=== PATIENT | male | born 1960 | race Caucasian/White ===

== ENCOUNTER → 2018-05-22 11:41 | Outpatient (CLI) | payer BC, SELFPAY ==
[2018-05-22 12:56] LABS: PSA,Total - Annual Screen 1.82 ng/mL (0.00-4.00)
== END ==
PROVIDERS: Family Provider Family Medicine; PCP Family Medicine; Visit Provider Nurse Practitioner Adult Health
DX: Z12.5 Encounter for screening for malignant neoplasm of prostate (principal)
CPT/HCPCS: 36415; 84153; G0103

== ENCOUNTER → 2019-01-28 11:17 | Outpatient (CLI) | payer BC, SELFPAY ==
[2019-01-28 14:00] LABS: Absolute Lymphocyte Count 1.54 X10^3/ul (0.83-4.51); Absolute Neutrophil Count 2.8 X10^3/uL (2.0-7.7); Basophil# 0.03 X10^3/uL; Basophil% 0.6 % (0-1); Eosinophil# 0.16 X10^3/uL; Eosinophils% 3.2 % (0-5); Hematocrit 41.7 % (40-54); Hemoglobin 14.4 g/dl (13.0-16.5); Lymphocyte # 1.54 X10^3/ul (4.0); Lymphocyte % 30.8 % (19-41); Mean Corp Hgb Conc 34.5 g/gl (32-36); Mean Corpuscular Hgb 30.6 pg (27.0-32.0); Mean Corpuscular Volume 88.5 fL (80-94); Monocyte# 0.49 X10^3/uL; Monocyte% 9.8 % (0-10); Neutrophil # 2.75 X10^3/uL (2.7-7.7); Platelet Count 173 K/mm3 (150-450); RBC Distribution Width CV 13.6 % (11.6-14.6); RBC Distribution Width SD 43.4 fl (35.1-43.9); Red Blood Count 4.71 M/mm3 (4.6-6.2)
[2019-01-28 14:16] LABS: POSITIVE COUNT NO; POSITIVE DIFFERENTIAL NO; POSITIVE MORPHOLOGY NO
[2019-01-28 14:33] LABS: ALB/GLOB Ratio 1.1 RATIO (0.9-2.4); AST(SGOT) 22 U/L (15-37); Alanine Aminotransfer ALT/SGPT 39 U/L (16-61); Albumin, Serum 4.1 g/dL (3.2-5.0); Alkaline Phosphatase 57 U/L (45-117); Anion Gap 10 (5-15); BUN 15 mg/dL (7-18); BUN/Creat Ratio 16.4 RATIO (10-20); Calcium,Total 9.6 mg/dL (8.5-10.1); Chloride 106 mmol/L (98-107); Creatinine, Serum 0.92 mg/dL (0.70-1.30); EST Glomerular Filtration Rate 90 mL/min (>60); Est Glom Filt Rate - Afr Amer 109 mL/min (>60); Globulin 3.9 g/dL (2.2-4.2); Glucose 190 mg/dL (74-106); Potassium 4.4 mmol/L (3.5-5.1); Sodium Level 140 mmol/L (136-145); T4 Free Direct 0.85 ng/dL (0.76-1.46); Thyroid Stim Hormone (TSH) 1.59 uIU/mL (0.358-3.74)
[2019-01-28 14:41] LABS: Microalbumin:Creatinine Ratio 15.5 mg/g CRE (<30 mg/g CRE)
== END ==
PROVIDERS: Family Provider Family Medicine; PCP Family Medicine; Visit Provider Family Medicine
DX: E11.9 Type 2 diabetes mellitus without complications (principal); I10 Essential (primary) hypertension; E78.5 Hyperlipidemia, unspecified
CPT/HCPCS: 36415; 80053; 82043; 82570; 84439; 84443; 85025

== ENCOUNTER → 2020-02-04 | Outpatient (CLI) | payer BC, SELFPAY ==
[2020-02-04 15:41] LABS: Anion Gap 7 (5-15); BUN 20 mg/dL (7-18); BUN/Creat Ratio 23.3 RATIO (10-20); Calcium,Total 9.2 mg/dL (8.5-10.1); Chloride 104 mmol/L (98-107); Creatinine, Serum 0.86 mg/dL (0.70-1.30); EST Glomerular Filtration Rate 96 mL/min (>60); Est Glom Filt Rate - Afr Amer 116 mL/min (>60); Glucose 224 mg/dL (74-106); PSA,Total - Annual Screen 2.18 ng/mL (0.00-4.00); Potassium 4.2 mmol/L (3.5-5.1); Sodium Level 137 mmol/L (136-145)
== END | disposition home or self-care (01) ==
LOC: LAB 14:01
PROVIDERS: PCP Family Medicine; Referring Provider Nurse Practitioner Adult Health; Visit Provider Nurse Practitioner Adult Health
DX: R33.8 Other retention of urine (principal); Z12.5 Encounter for screening for malignant neoplasm of prostate
CPT/HCPCS: 36415; 80048; 84153; G0103

== ENCOUNTER 2020-03-20 05:14 | Day surgery (SDC) | payer BC, SELFPAY ==
--- NOTE | 2020-03-19 12:15 | EKG12_ITS ---
Test Reason : PRE-OP Blood Pressure : / mmHG Vent. Rate : 083 BPM Atrial Rate : 083 BPM P-R Int : 138 ms QRS Dur : 078 ms QT Int : 374 ms P-R-T Axes : 024 -05 034 degrees QTc Int : 439 ms Normal sinus rhythm Nonspecific T wave abnormality Abnormal ECG Confirmed by REBECCA WRIGHT, SARAHI ([id number]), proposal editor JOE SABA ([id number]) on 03/23/2020 9:53:11 AM Referred By: Efren Ruiz Confirmed By:WILBERT FERNANDEZ MD
[2020-03-19 12:42] LABS: Hematocrit 40.1 % (40-54); Hemoglobin 13.7 g/dL (13.0-16.5); Mean Corp Hgb Conc 34.2 g/dL (32-36); Mean Corpuscular Hgb 30.9 pg (27.0-32.0); Mean Corpuscular Volume 90.5 fL (80-94); Mean Platelet Vol. 9.6 fl (6.2-12.0); Platelet Count 150 K/mm3 (150-450); RBC Distribution Width SD 43.1 fl (35.1-43.9); Red Blood Count 4.43 M/mm3 (4.6-6.2); White Blood Count 4.8 K/mm3 (4.4-11.0)
[2020-03-19 13:13] LABS: Anion Gap 9 (5-15); BUN 18 mg/dL (7-18); BUN/Creat Ratio 19.5 RATIO (10-20); Calcium,Total 9.2 mg/dL (8.5-10.1); Chloride 103 mmol/L (98-107); Creatinine, Serum 0.92 mg/dL (0.70-1.30); EST Glomerular Filtration Rate 89 mL/min (>60); Est Glom Filt Rate - Afr Amer 107 mL/min (>60); Glucose 224 mg/dL (74-106); Potassium 4.1 mmol/L (3.5-5.1); Sodium Level 139 mmol/L (136-145)
[2020-03-19 13:24] LABS: Hemoglobin A1c 9.6 % (3.8-5.6)
[2020-03-20] VITALS (11 sets, daily range): BP systolic 134–152; BP diastolic 83–95; PULSE 68–88; RESP 16; TEMP 36.1–36.9; O2SAT 92–98; BMI 40.9
[2020-03-20] MEDS: Lactated Ringers 1,000 ML 100 ML IV ×2 (06:06→09:40)
[2020-03-20 06:25] LABS: Bedside Glucose 283 mg/dL (70-110)
--- NOTE | 2020-03-20 07:27 | PCM.HP.STD ---
Problem List (1) BPH loc w urin obs/LUTS Status: Acute History of Present Illness Date of Admission: 03/20/20 Chief Complaint: BPH with outlet obstruction The patient is a 60 year old male with a history of obstructive urinary symptoms on cystoscopy was found to have a large median lobe causing obstruction because of this I recommended we proceed with a transurethral resection of the median lobe and transurethral section of the prostate. We talked about the procedure how it is done explained the patient how the procedure is done all his questions were addressed we talked about the risk of the procedure. He signed the consent form Past Medical History Allergies No Known Allergies Allergy (Verified 03/17/20 14:26) Home Medications: Ambulatory Orders Medication Instructions Recorded Glimepiride [Amaryl] 2 mg PO BID 02/26/14 Lisinopril [Zestril] 10 mg PO DAILY 02/26/14 Simvastatin [Zocor] 40 mg PO QHS 02/26/14 metFORMIN HCl [Glucophage] 1,000 mg PO BIDCM 02/26/14 Tadalafil [Cialis] 5 mg PO DAILY 03/17/20 Surgical History: no surgical history Smoking Status: Never smoker Tobacco Use: Non-smoker Review of Systems Constitutional: Denies: Chills, Fever, Weight Change HEENT: Denies: Head Aches, Sinus Congestion, Sinus Drainage Cardiovascular: Denies: Chest Pain, Palpitations Respiratory: Denies: Cough, Shortness of breath at rest, Sputum production Gastrointestinal: Denies: Abdominal Pain, Nausea, Vomiting Genitourinary: Denies: Dysuria Musculoskeletal: Denies: Joint Pain, Joint Tenderness Skin: Denies: Rash, Wounds Neurological: Denies: Numbness, Tingling, Focal weakness Psychiatric: Denies: Anxiety, Depression, Homicidal Ideations, Suicidal Ideations Hematologic/ Lymphatic: Denies: Easy Bruising, Easy Bleeding VTE Information - Inpt Only VTE Present on Admission: No VTE Mechan Device Prophylaxis: SCD's Patient Problems: Active and Suspected Problems BPH loc w urin obs/LUTS (Acute) - Physical Exam Vitals/I&O's: Vital Signs Temp Pulse Resp BP Pulse Ox 97.4 F L 77 16 148/85 H 95 03/20/20 05:47 03/20/20 05:47 03/20/20 05:47 03/20/20 05:47 03/20/20 05:47 Oxygen Delivery Method Room Air Weight: 129.4 kg Body Mass Index (BMI) 40.9 Finger Stick Blood Glucose 93 General: Alert, Oriented x3, Cooperative HEENT: Atraumatic, PERRLA, EOMI, Normocephalic Neck: Supple, No JVD, Negative Carotid Bruits Lungs: Clear to auscultation, Normal air movement Cardiovascular: Regular rate, No murmurs Abdomen: Bowel Sounds Present, Soft, Non Tender Extremities: No edema, Capillary Refill Less than 3 Seconds Skin: No rashes, No breakdown Musculoskeletal: No Tenderness to Palpation of Joints or Extremities Neurological: Cranial nerves II-XII grossly intact Psych/Mental Status: Normal Affect, Appropriate Laboratory Results 03/19/20 12:11: COVID-19 ([facility]) Not Detected 03/19/20 12:22: Sodium 139, Potassium 4.1, Chloride 103, Carbon Dioxide 27.0, Anion Gap 9, BUN 18, Creatinine 0.92, Est GFR (MDRD) Af Amer 107, Est GFR (MDRD) Non-Af 89, BUN/Creatinine Ratio 19.5, Glucose 224 H, Calcium 9.2 03/19/20 12:23: WBC 4.8, RBC 4.43 L, Hgb 13.7, Hct 40.1, MCV 90.5, MCH 30.9, MCHC 34.2, RDW Std Deviation 43.1, RDW Coeff of Phi 13.0, Plt Count 150, MPV 9.6 03/19/20 12:23: Hemoglobin A1c 9.6 H 03/20/20 05:56: POC Glucose 283 H Current Medications Cefazolin Sodium 3 gm/ Sodium (Chloride) 115 mls @ 150 mls/hr IV PREOP ONE Stop: 03/20/20 08:15 Lactated Ringer's () 1,000 mls @ 100 mls/hr IV .Q10H SHARON Last Admin: 03/20/20 06:06 Dose: 100 mls/hr Documented by: Assessment/Plan All Active Problems BPH loc w urin obs/LUTS (Acute) Plan to proceed with transurethral resection of the prostate.
--- NOTE | 2020-03-20 07:29 | DCINST_ITS ---
Discharge Diet: Light diet - advance as tolerated Discharge Activity: Return to Normal Activity Call your doctor if your incision/area has: Sudden Increased Bleeding Instructions: Transurethral Resection of the Prostate (TURP): Home Recovery Allergies/Adverse Reactions: Allergies No Known Allergies Allergy (Verified 03/17/20 14:26) Medications to take at Discharge Glimepiride [Amaryl] 2 mg PO BID 02/26/14 Lisinopril [Zestril] 10 mg PO DAILY 02/26/14 Simvastatin [Zocor] 40 mg PO QHS 02/26/14 metFORMIN HCl [Glucophage] 1,000 mg PO BIDCM 02/26/14 Tadalafil [Cialis] 5 mg PO DAILY 03/17/20 Primary Care Physician: Felix Cardona MD [Primary Care Provider] - Test Results: Test results from this visit will be discussed in further detail at your follow- up appointment, if applicable. Please Follow Up With: Efren Ruiz MD When: in 2 weeks, please call to make an appointment.
--- NOTE | 2020-03-20 07:30 | PROS_PTH ---
PATIENT: LUIZ MONAE LOC: [facility] [place]#:[id number] AGE/SX: 60/M ROOM: RE03/20/[address]: Dr. Efren Ruiz MD : 1960 BED: DIS: 03/21/2020 SPEC #: [id number] RECD: 03/20/20 10:10 STATUS: NADYA HAMZAH #: [id number] JOEY: 03/20/20 07:[address]: Efren Ruiz DEPT: SURGICAL PATHOLOGY RECD BY: Rajeev Felipe ENTERED: 03/20/20 13:03 SP TYPE: TURP OTHR DR: Dr. Felix Cardona MD Tissues: Prostate, NOS Procedures: Surgery Specimen Level IV HEADER OPERATION: Cystoscopy, TUR prostate, Olympus PRE-OP DIAGNOSIS: BPH with lower urinary tract symptoms TISSUE SUBMITTED: Prostate tissue MICROSCOPIC DIAGNOSIS Prostate, transurethral resection: Benign nodular hyperplasia, glandular and stromal types. Mild chronic inflammation and focal acute inflammation. AM:adelso 03/23/20 MICROSCOPIC DESCRIPTION Slides are reviewed. GROSS DESCRIPTION Received is one container labeled with the patient's name and designated prostate tissue. The specimen consists of multiple irregular fragments of pink-andrews, rubbery, soft tissue that in aggregate weigh 12.4 gm and measure in aggregate 6 x 6 x 0.8 cm. The entire specimen is submitted in ten cassettes. / AM:adelso 03/20/20 TC:3 CPT: 86841
[2020-03-20] MEDS: Lubricating Jelly 60 GM Tube 30 GM TOPICAL (07:40)
--- NOTE | 2020-03-20 08:30 | OP.PCM_ITS ---
Problem List (1) BPH loc w urin obs/LUTS Status: Acute Report of Operation Date of Procedure: 03/20/20 Pre-Operative Diagnosis: BPH with obstruction Post-Operative Diagnosis: Same Surgery/Procedure Performed:: Transurethral resection of the prostate Description of Surgical Findings:: 60-year-old male with significant obstruction of the prostate presents for transurethral resection, Patient was taken back to the operating room at the smooth induction of general anesthesia he was placed in dorsolithotomy position the penis and testicles were prepped and draped in usual sterile fashion, I first dilated the meatus and then I went in with a 24 Tristanian noncontinuous flow resectoscope. On inspection of the prostate he had significant bilateral hypertrophy but also had a significant median lobe causing blockage in ball-valve blockage, identified the right and left ureteral orifice I then resected the median lobe I then resected the right lobe of the prostate I then resect the left low the prostate. And then resect the apical tissue. All the chips were Ellik out of the bladder, I did a flow test had a wide open flow. Resection time took about 45 minutes, obtain hemostasis and then put a catheter in for continuous irrigation. Patient anesthetic was being reversed. Type of Anesthesia:: General Drains: 22fr 3 way - Admit VTE Documentation VTE Present on Admission: No VTE Mechan Device Prophylaxis: SCD's
[2020-03-20 09:15] LABS: Bedside Glucose 266 mg/dL (70-110)
[2020-03-20] MEDS: Ondansetron 4 MG/2 ML Vial IV (10:29)
[2020-03-20] MEDS: 0.9% Normal Saline 1,000 ML 75 ML IV ×2 (10:45→23:48)
--- NOTE | 2020-03-20 11:01 | CPS ---
[facility] setup patient's home CPAP at bedside. Water chamber filled and mask put on with comfort. Patient understands to have RN call [facility] if any problems occur with machine.
[2020-03-20] MEDS: Docusate Sodium 100 MG Capsule PO ×2 (14:45→21:29)
[2020-03-20] MEDS: Pantoprazole Sodium 40 MG Tablet PO (14:46)
[2020-03-20] MEDS: Glimepiride 2 MG Tablet PO (17:46)
[2020-03-20] MEDS: Ibuprofen 600 MG Tablet PO (17:59)
[2020-03-20] MEDS: Atorvastatin Calcium 20 MG Tablet PO (21:29)
[2020-03-20] MEDS: Lisinopril 10 MG Tablet PO (21:30)
[2020-03-21 02:36] VITALS: BP 127/83; PULSE 70; RESP 16; TEMP 36.8; O2SAT 98
[2020-03-21] MEDS: Ibuprofen 600 MG Tablet PO (02:47)
[2020-03-21 07:50] VITALS: BP 116/79; PULSE 71; RESP 16; TEMP 36.5; O2SAT 96
[2020-03-21] MEDS: Pantoprazole Sodium 40 MG Tablet PO (09:20)
[2020-03-21] MEDS: Glimepiride 2 MG Tablet PO (09:20)
[2020-03-21] MEDS: Docusate Sodium 100 MG Capsule PO (09:20)
== END 2020-03-21 12:51 | disposition home or self-care (01) ==
LOC: SDC 05:15 → AC 05:15 → MS3 08:22
PROVIDERS: Anesthesiology; PCP Family Medicine; Referring Provider Urology; Visit Provider Urology
PROC: (CPT 52601; principal; 2020-03-20 07:20)
DX: N40.1 Benign prostatic hyperplasia with lower urinary tract symptoms (principal); N13.8 Other obstructive and reflux uropathy; E11.9 Type 2 diabetes mellitus without complications; E78.00 Pure hypercholesterolemia, unspecified; G47.30 Sleep apnea, unspecified; Z87.442 Personal history of urinary calculi; Z79.84 Long term (current) use of oral hypoglycemic drugs; Z79.899 Other long term (current) drug therapy; Z11.59 Encounter for screening for other viral diseases
CPT/HCPCS: 52601; 36415; 80048; 82962; 83036; 85027; 87635; 88305; 93005; G2023; J7030; J7120; J2405; U0003

== ENCOUNTER → 2020-06-02 | Outpatient (CLI) | payer BC, SELFPAY ==
[2020-03-20 10:33] VITALS: BMI 40.9
== END | disposition home or self-care (01) ==
PROVIDERS: PCP Family Medicine; Referring Provider Urology; Visit Provider Urology
DX: N39.0 Urinary tract infection, site not specified (principal)
CPT/HCPCS: 87086; 87088

== ENCOUNTER 2020-07-01 08:07 | Outpatient (RCR) | payer BC, SELFPAY ==
[2020-03-20 10:33] VITALS: BMI 40.9
== END 2020-07-01 23:59 ==
LOC: EMPH 08:07
PROVIDERS: PCP Family Medicine; Visit Provider Family Medicine Geriatric Medicine
DX: Z11.59 Encounter for screening for other viral diseases (principal)
CPT/HCPCS: 87635; U0003

== ENCOUNTER 2020-07-31 06:40 | Outpatient (RCR) | payer BC, SELFPAY ==
[2020-03-20 10:33] VITALS: BMI 40.9
== END 2020-08-01 23:59 ==
LOC: EMPH 06:40
PROVIDERS: PCP Family Medicine; Visit Provider Family Medicine Geriatric Medicine
DX: Z03.818 Encounter for observation for suspected exposure to other biological agents ruled out (principal)
CPT/HCPCS: 87426

== ENCOUNTER 2020-07-31 06:40 | Outpatient (RCR) | payer BC, SELFPAY ==
[2020-03-20 10:33] VITALS: BMI 40.9
== END 2020-08-03 23:59 ==
LOC: EMPH 06:40
PROVIDERS: PCP Family Medicine; Referring Provider Family Medicine Geriatric Medicine; Visit Provider Family Medicine Geriatric Medicine
DX: Z03.818 Encounter for observation for suspected exposure to other biological agents ruled out (principal)

== ENCOUNTER 2020-08-11 09:36 | Outpatient (RCR) | payer BC, SELFPAY ==
[2020-03-20 10:33] VITALS: BMI 40.9
== END 2020-08-31 23:59 ==
LOC: EMPH 09:36
PROVIDERS: PCP Family Medicine; Referring Provider Family Medicine Geriatric Medicine; Visit Provider Family Medicine Geriatric Medicine
DX: Z03.818 Encounter for observation for suspected exposure to other biological agents ruled out (principal)
CPT/HCPCS: 87426

== ENCOUNTER 2020-09-28 08:27 | Outpatient (RCR) | payer BC, SELFPAY ==
[2020-03-20 10:33] VITALS: BMI 40.9
== END 2020-10-01 23:59 ==
LOC: EMPH 08:27
PROVIDERS: PCP Family Medicine; Referring Provider Family Medicine Geriatric Medicine; Visit Provider Family Medicine Geriatric Medicine
DX: Z03.818 Encounter for observation for suspected exposure to other biological agents ruled out (principal)
CPT/HCPCS: 87426

== ENCOUNTER 2020-10-21 08:01 | Outpatient (RCR) | payer BC, SELFPAY ==
[2020-03-20 10:33] VITALS: BMI 40.9
== END 2020-11-01 23:59 ==
LOC: EMPH 08:01
PROVIDERS: PCP Family Medicine; Referring Provider Family Medicine Geriatric Medicine; Visit Provider Family Medicine Geriatric Medicine
DX: Z03.818 Encounter for observation for suspected exposure to other biological agents ruled out (principal)
CPT/HCPCS: 87426

== ENCOUNTER → 2020-11-11 13:20 | Outpatient (CLI) | payer BC, SELFPAY ==
[2020-03-20 10:33] VITALS: BMI 40.9
== END ==
PROVIDERS: PCP Family Medicine; Visit Provider Family Medicine
DX: Z46.89 Encounter for fitting and adjustment of other specified devices (principal)

== ENCOUNTER 2021-03-27 09:05 | Emergency (ER) | payer BC, SELFPAY ==
[2020-03-20 10:33] VITALS: BMI 40.9
[2021-03-27 09:07] VITALS: BP 154/93; PULSE 108; RESP 16; TEMP 36.7; O2SAT 96; BMI 40.1
--- NOTE | 2021-03-27 09:24 | EKG12_ITS ---
Test Reason : ABCESS Blood Pressure : / mmHG Vent. Rate : 104 BPM Atrial Rate : 104 BPM P-R Int : 138 ms QRS Dur : 076 ms QT Int : 328 ms P-R-T Axes : 023 -02 071 degrees QTc Int : 431 ms Sinus tachycardia with Premature supraventricular complexes Nonspecific T wave abnormality Abnormal ECG Confirmed by OTIS WRIGHT, BOOM ([id number]), fan mail editor JOE SABA ([id number]) on 03/30/2021 8:48:16 AM Referred By: CL Confirmed By:BOOM BERG MD
--- NOTE | 2021-03-27 09:24 | CT_ITS ---
STUDY: CT SOFT TISSUE NECK WITH CONTRAST REASON FOR EXAM: Male, 61 years old. Left posterior neck cyst for few weeks, now draining, possible abscess. RADIATION DOSAGE (If Supplied By Facility): CTDIvol = ( 19.96 ) mGy, DLP = ( 748.05 ) mGycm TECHNIQUE: The patient was scanned in a multi-detector CT scanner. High resolution transaxial imaging was performed following intravenous administration of IV 100mL Isovue-300. Sagittal and coronal images were reconstructed. Individualized dose optimization techniques were used for this CT. COMPARISON: None. FINDINGS: Edema and swelling of the inferior occipital region and upper neck with diffuse skin thickening extending to the occipital muscle regions. The occipital muscles appears to be thickened particularly on the left side. No focal fluid collection or drainable abscess is seen. The parotid glands are unremarkable. The submandibular glands are symmetric. Normal bilateral parapharyngeal spaces. Normal bilateral carotid spaces. The floor the mouth is obscured by severe artifacts from teeth fillings. Normal visualized nasopharynx. Normal retropharyngeal space. Normal perivertebral space. Normal visualized bilateral faucial tonsils. Few nodes in the posterior triangle of the neck particularly on the left side likely reactive. There is no demonstrated solid or cystic mass lesion. There is no abnormal contrast enhancement. Normal epiglottis, bilateral vallecula and hypopharynx. The pre-epiglottic and paraglottic adipose spaces are normal. Normal visualized bilateral piriform sinuses, aryepiglottic folds, vocal cords, and arytenoid-cricoid articulations. Normal subglottic trachea. Normal bilateral lobes of the thyroid gland. Normal visualized pulmonary apices. Mucosal thickening of the maxillary sinuses bilaterally. Mild degenerative changes of the spine. CT/Soft Tissue Neck WITH Contrast IMPRESSION: Extensive subcutaneous edema and swelling of the occipital region extending to the posterior neck with thickening of the occipital muscles. No demonstrated drainable abscess at this time. Few small nodes on the left side of the neck likely reactive. Electronically Signed: Dimas Carlton MD at 11:51 EDT Tel , Service support ,
--- NOTE | 2021-03-27 09:25 | EX.ED.DYSGE1 ---
HPI History of Present Illness Chief Complaint: Abscess Informant: patient Narrative Narrative: 61-year-old male presents with abscess to his left neck. States it is been progressing over the past 1 week. States he has had chills without fever. Pain is increasing into his mid neck. States that he has had a previous infected sebaceous cyst removed by general surgery on the other side of his neck. Denies any vomiting, headache, vision change. [facility] Medical History (Updated 03/27/21 @ 12:[address] Jt Moya DO) Diabetes Hyperlipidemia Home Medications glimepiride 4 mg PO BID 02/26/14 [History Last Taken Unknown] lisinopril 10 mg PO DAILY 02/26/14 [History Last Taken Unknown] metformin 1,000 mg PO BIDCM 02/26/14 [History Last Taken Unknown] simvastatin 40 mg PO QHS 02/26/14 [History Last Taken Unknown] tadalafil 5 mg PO DAILY 03/17/20 [History Last Taken Unknown] cephalexin 500 mg PO Q6 #40 capsule 03/27/21 [Rx Last Taken Unknown] doxycycline hyclate 100 mg PO BID #20 cap 03/27/21 [Rx Last Taken Unknown] naproxen 500 mg PO BID #14 tab 03/27/21 [Rx Last Taken Unknown] Allergy/AdvReac Type Severity Reaction Status Date / Time sulfamethoxazole Allergy Other Verified 03/27/21 09:10 [From Bactrim] trimethoprim [From Bactrim] Allergy Other Verified 03/27/21 09:10 Surgical History (Updated 03/27/21 @ 10:03 by Nikki Carlos) History of tonsillectomy History of transurethral resection of prostate Social History Smoking Status: Never smoker ROS ROS ED Constitutional Constitutional ED: Reports chills; Denies fever(s) or sweats Eyes Eyes: Denies blurry vision, change in vision or diplopia ENT ENT ED: Denies rhinorrhea or sore throat Cardiovascular Cardiovascular: Denies chest pain, orthopnea, palpitations or racing heartbeat Respiratory/Chest Respiratory/Chest: Denies cough, dyspnea, dyspnea on exertion, orthopnea or sputum Gastrointestinal Gastrointestinal: Denies abdominal pain, constipation, diarrhea, melena, nausea or vomiting Genitourinary Genitourinary ED: Denies dysuria, hematuria or urinary frequency Musculoskeletal Musculoskeletal: Reports neck pain; Denies arthralgias or myalgias Integumentary Reports abscess; Denies rash Neurologic Neurologic: Denies headache(s), paresthesias or weakness Psychiatric Psychiatric: Denies anxiety or depression Hematologic/Lymphatic Hematologic/Lymphatic: Denies easy bleeding or easy bruising Allergic/Immunologic Allergic/Immunologic ED: Denies mouth swelling or tongue swelling EXAM Physical Exam Const Vital Signs: 03/27/21 09:07 03/27/21 11:48 03/27/21 11:50 Temperature 98.1 F 99.9 F H 99.9 F H Temperature Source Temporal Oral Oral Pulse Rate 108 H 97 Respiratory Rate 16 20 H Blood Pressure 154/93 H 159/81 H Blood Pressure Mean 113 107 Pulse Ox 96 97 Oxygen Delivery Method Room Air Room Air Positive well nourished and well developed General Appearance ED: well developed HEENT Reports TM's clear and moist mucous membranes normocephalic and atraumatic Tympanic Membrane ED: Yes TM's clear Eyes PERRL and EOMs intact bilaterally Neck no lymphadenopathy, supple and no JVD Chest Wall inspection of chest normal Resp normal respiratory effort and clear to auscultation bilaterally Cardio regular rate, S1 normal heart sound, S2 normal heart sound and no murmurs Peripheral Pulses: pulses 2+ throughout GI soft to palpation, non-tender and non-distended Back/Spine no CVA tenderness and no thoracic nor lumbar tenderness Extremity normal to inspection General Extremety ED: Negative for edema or tenderness General Extremity: Negative for edema Neuro oriented x3, CN's II-XII intact bilaterally and no sensory deficits noted Sensorium / Orientation: alert Motor Exam: strength 5/5 throughout Psych mental status grossly normal Skin Skin Narrative: Large indurated abscess to the left posterior neck. No surrounding cellulitis. No crepitus. MDM MDM MDM Narrative Medical decision making narrative: Patient appears well and nontoxic. Mildly tachycardic. No leukocytosis but lactate of 3.6. Glucose of 328. CT shows no abscess but does show extensive cellulitis. Patient was given 1 L of normal saline. Given 2 doses of Toradol to control his pain. Patient was offered admission but wishes to try p.o. antibiotics and will return if worsening. Will be placed on Keflex and Bactrim. Asked to return for new or worsening symptoms. Patient agreeable and discharged home in stable condition. Lab Data Attestation: I reviewed the patient's lab results. Labs: Laboratory Results - last 24 hr 03/27/21 03/27/21 03/27/21 09:50 09:50 09:50 WBC 10.5 RBC 4.47 L Hgb 13.4 Hct 39.5 L MCV 88.4 MCH 30.0 MCHC 33.9 RDW Std Deviation 41.1 RDW Coeff of Phi 12.7 Plt Count 173 MPV 9.4 Immature Gran % (Auto) 0.500 Neut % (Auto) 77.9 H Lymph % (Auto) 9.7 L [place] % (Auto) 10.0 Eos % (Auto) 1.1 Baso % (Auto) 0.8 Absolute Neuts (auto) 8.2 H Absolute Lymphs (auto) 1.02 Nucleated RBC % 0 Sodium 134 L Potassium 4.2 Chloride 97 L Carbon Dioxide 28.0 Anion Gap 9 BUN 21 H Creatinine 1.14 Estim Creat Clear Calc 69.37 Est GFR (MDRD) Af Amer 84 Est GFR (MDRD) Non-Af 69 BUN/Creatinine Ratio 18.4 Glucose 328 H Lactic Acid 3.6 H* Calcium 9.4 Total Bilirubin 0.80 AST 5 L ALT 19 Alkaline Phosphatase 52 Total Protein 7.6 Albumin 3.4 Globulin 4.2 Albumin/Globulin Ratio 0.8 L Radiography Diagnostic Testing: Radiology Impression Soft Tissue Neck CT 03/27/21 09:24 IMPRESSION: Extensive subcutaneous edema and swelling of the occipital region extending to the posterior neck with thickening of the occipital muscles. No demonstrated drainable abscess at this time. Few small nodes on the left side of the neck likely reactive. Electronically Signed: Dimas Carlton MD at 11:51 EDT Tel , Service support , Discharge Plan Triage Chief Complaint: Abscess ED Provider: Jt Moya Dx/Rx/DC Orders Clinical Impression: Cellulitis of neck, Hyperglycemia, Lactic acidemia Instructions: ED Cellulitis Prescriptions: New cephalexin 500 mg capsule 500 mg PO Q6 Qty: 40 RF: 0 naproxen 500 mg tablet 500 mg PO BID Qty: 14 RF: 0 doxycycline hyclate 100 mg capsule 100 mg PO BID Qty: 20 RF: 0 No Action simvastatin 40 MG tablet 40 mg PO QHS RF: 0 glimepiride 2 MG tablet 4 mg PO BID RF: 0 metformin 1,000 MG tablet 1,000 mg PO BIDCM RF: 0 lisinopril 10 MG tablet 10 mg PO DAILY RF: 0 tadalafil 5 MG tablet 5 mg PO DAILY RF: 0 Primary Care Provider: Felix Cardona Referrals: Felix Cardona MD [Primary Care Provider] - 2 Days Disposition Disposition: Home, Self Care
[2021-03-27 10:05] LABS: Absolute Lymphocyte Count 1.02 X10^3/uL (0.83-4.51); Absolute Neutrophil Count 8.2 X10^3/uL (2.0-7.7); Basophil# 0.08 X10^3/uL; Basophil% 0.8 % (0-1); Eosinophil# 0.12 X10^3/uL; Eosinophils% 1.1 % (0-5); Hematocrit 39.5 % (40-54); Hemoglobin 13.4 g/dL (13.0-16.5); Lymphocyte # 1.02 X10^3/ul (0.83-4.51); Lymphocyte % 9.7 % (19-41); Mean Corp Hgb Conc 33.9 g/dL (32-36); Mean Corpuscular Volume 88.4 fL (80-94); Mean Platelet Vol. 9.4 fl (6.2-12.0); Monocyte# 1.05 X10^3/uL; NRBC Flagged by Analyzer 0 % (0-5); Neutrophil # 8.16 X10^3/uL (2.7-7.7); Neutrophil % 77.9 % (47-70); Platelet Count 173 K/mm3 (150-450); RBC Distribution Width CV 12.7 % (11.6-14.6); RBC Distribution Width SD 41.1 fl (35.1-43.9); Red Blood Count 4.47 M/mm3 (4.6-6.2); White Blood Count 10.5 K/mm3 (4.4-11.0)
[2021-03-27] MEDS: 0.9% Normal Saline 1,000 ML 999 ML IV (10:17)
[2021-03-27] MEDS: Ketorolac 15 MG/ML Vial IV ×2 (10:17→12:40)
[2021-03-27 10:22] LABS: ALB/GLOB Ratio 0.8 RATIO (0.9-2.4); AST(SGOT) 5 U/L (15-37); Alanine Aminotransfer ALT/SGPT 19 U/L (16-61); Albumin, Serum 3.4 g/dL (3.2-5.0); Alkaline Phosphatase 52 U/L (45-117); Anion Gap 9 (5-15); BUN 21 mg/dL (7-18); BUN/Creat Ratio 18.4 RATIO (10-20); Calcium,Total 9.4 mg/dL (8.5-10.1); Chloride 97 mmol/L (98-107); Creatinine, Serum 1.14 mg/dL (0.70-1.30); EST Glomerular Filtration Rate 69 mL/min (>60); Est Glom Filt Rate - Afr Amer 84 mL/min (>60); Estimated Creatinine Clearance 69.37 ml/min; Globulin 4.2 g/dL (2.2-4.2); Glucose 328 mg/dL (74-106); Potassium 4.2 mmol/L (3.5-5.1); Protein, Total 7.6 g/dL (6.4-8.2); Sodium Level 134 mmol/L (136-145)
--- NOTE | 2021-03-27 10:31 | ED.RN ---
lab called lactic 3.6. dr dudley
[2021-03-27 10:33] LABS: Lactic Acid 3.6 mmol/L (0.4-1.9)
[2021-03-27 11:48] VITALS: BP 159/81; PULSE 97; RESP 20; TEMP 37.7; O2SAT 96; O2SAT 97
[2021-03-27 11:50] VITALS: TEMP 37.7
[2021-03-27 12:53] VITALS: BP 158/84; RESP 18
[2021-03-27 14:01] LABS: Reflex Lactate? Y
== END 2021-03-27 12:54 | disposition home or self-care (01) ==
PROVIDERS: Emergency Provider Emergency Medicine; PCP Family Medicine
DX: L03.221 Cellulitis of neck (principal); E11.65 Type 2 diabetes mellitus with hyperglycemia; E87.2 Acidosis; E78.5 Hyperlipidemia, unspecified; Z79.84 Long term (current) use of oral hypoglycemic drugs; Z79.899 Other long term (current) drug therapy
CPT/HCPCS: 70491; 80053; 83605; 85025; 87040; 93005; 96361; 96374; 96376; 99284; J7030; Q9967; A4216

== ENCOUNTER 2021-03-28 03:36 | Emergency (ER) | payer BC, SELFPAY ==
[2021-03-27 09:07] VITALS: BMI 40.1
[2021-03-28 03:37] VITALS: BP 166/90; PULSE 114; RESP 18; TEMP 37.4; O2SAT 98; BMI 39.4
--- NOTE | 2021-03-28 04:03 | EX.ED.DYSGE1 ---
HPI History of Present Illness Chief Complaint: Abscess Informant: patient Onset/Context/Timing Onset: Days (Several) Context: Gradual Onset Timing: Continuous Quality: Pain Location: Left posterior neck Current Severity: Severe Maximum Severity: Severe Worsened by: Palpation, moving neck Relieved by: Remaining still Associated Symptoms Associated Symptoms: Draining pus Narrative Narrative: No fevers or systemic symptoms. Patient had tender swollen area there and was seen yesterday had a CT scan that did not show a drainable collection, he was placed on cephalexin and doxycycline since he has a Bactrim/sulfa allergy, he states it is much worse now and draining purulent material spontaneously. He is a diabetic. [facility] Medical History Diabetes Hyperlipidemia Home Medications glimepiride 4 mg PO BID 02/26/14 [History Last Taken Unknown] lisinopril 10 mg PO DAILY 02/26/14 [History Last Taken Unknown] metformin 1,000 mg PO BIDCM 02/26/14 [History Last Taken Unknown] simvastatin 40 mg PO QHS 02/26/14 [History Last Taken Unknown] tadalafil 5 mg PO DAILY 03/17/20 [History Last Taken Unknown] doxycycline hyclate 100 mg PO BID #20 cap 03/27/21 [Rx Last Taken Unknown] naproxen 500 mg PO BID #14 tab 03/27/21 [Rx Last Taken Unknown] clindamycin HCl 300 mg PO 4X/DAY #80 capsule 03/28/21 [Rx Last Taken Unknown] hydrocodone-acetaminophen 1 tab PO Q6H PRN PRN 3 Days #12 tablet 03/28/21 [Rx Last Taken Unknown] Allergy/AdvReac Type Severity Reaction Status Date / Time sulfamethoxazole Allergy Other Verified 03/28/21 03:41 [From Bactrim] trimethoprim [From Bactrim] Allergy Other Verified 03/28/21 03:41 Surgical History History of tonsillectomy History of transurethral resection of prostate Social History Smoking Status: Never smoker ROS ROS ED Constitutional Constitutional ED: Denies chills or fever(s) Eyes Eyes: Denies change in vision or diplopia ENT ENT ED: Denies rhinorrhea or sore throat Cardiovascular Cardiovascular: Denies chest pain or palpitations Respiratory/Chest Respiratory/Chest: Denies cough or dyspnea Gastrointestinal Gastrointestinal: Denies abdominal pain, diarrhea, nausea or vomiting Genitourinary Genitourinary ED: Denies dysuria or hematuria Musculoskeletal Musculoskeletal: Reports neck pain; Denies back pain Integumentary Reports as per HPI and abscess; Denies rash Neurologic Neurologic: Denies headache(s), paresthesias or weakness Psychiatric Psychiatric: Denies anxiety or suicidal thoughts EXAM Physical Exam Const Vital Signs: 03/28/21 03:37 Temperature 99.3 F H Temperature Source Oral Pulse Rate 114 H Respiratory Rate 18 Blood Pressure 166/90 H Blood Pressure Mean 115 Pulse Ox 98 Oxygen Delivery Method Room Air Positive well nourished and well developed General Appearance ED: well developed and NAD HEENT Reports moist mucous membranes normocephalic and atraumatic Eyes PERRL and EOMs intact bilaterally Neck full ROM and supple Neck Narrative: Tender posteriorly at abscess Resp normal respiratory effort Neuro oriented x3, CN's II-XII intact bilaterally and no sensory deficits noted Sensorium / Orientation: awake and alert Motor Exam: strength 5/5 throughout Skin no rashes or lesions noted Skin Narrative: Large abscess left posterior neck, 6 cm in diameter, actively draining purulent material from the center with surrounding erythema MDM MDM MDM Narrative Medical decision making narrative: We checked the patient's blood sugars in the 300s he was treated with insulin. He was given a dose of vancomycin 15 mg/kg. He had a CT yesterday that showed cellulitis no drainable collection, and in less than 24 hours this has changed dramatically, as it is obviously draining purulent material. See the procedure note, the abscess was drained and packed with gauze, the cavity was present in approximately 5 cm length. He is allergic to Bactrim which would be the best treatment for this given that it is very likely MRSA, so I am having him discontinue the Keflex and continue the doxycycline, adding clindamycin to it, which are the best to medications next to sulfa to treat MRSA. Given that I got a good drainage, I think he can be treated as an outpatient. He has seen Dr. Ham for this in the past to drain his other neck abscess. She would be appropriate to follow-up with. Also advised to follow-up with his PCP with regards to diabetes management. Procedures Other Procedures Procedure(s): Complex abscess incision and drainage neck --8 cc of plain 1% lidocaine were used to locally anesthetize, the area was prepped and draped with chlorhexidine, and incised with a #10 blade vertically centrally. Pus was expressed, the abscess cavity was deloculated in several directions to the best of my ability and more pus was expressed. The cavity was irrigated with sterile saline, and packed with half-inch gauze. Tolerated well no complications. Discharge Plan Triage Chief Complaint: Abscess ED Provider: Emile Carcamo Dx/Rx/DC Orders Clinical Impression: Cellulitis and abscess of neck, Hyperglycemia Instructions: ED Abscess Incision And Drainage Prescriptions: New clindamycin HCl 150 mg capsule 300 mg PO 4X/DAY Qty: 80 RF: 0 hydrocodone-acetaminophen [hydrocodone-acetaminophen] 1 TABLET tablet 1 tab PO Q6H PRN PRN (Reason: Pain) 3 Days Qty: 12 RF: 0 Continued simvastatin 40 MG tablet 40 mg PO QHS RF: 0 glimepiride 2 MG tablet 4 mg PO BID RF: 0 metformin 1,000 MG tablet 1,000 mg PO BIDCM RF: 0 lisinopril 10 MG tablet 10 mg PO DAILY RF: 0 tadalafil 5 MG tablet 5 mg PO DAILY RF: 0 doxycycline hyclate 100 mg capsule 100 mg PO BID Qty: 20 RF: 0 Discontinued cephalexin 500 mg capsule 500 mg PO Q6 Qty: 40 RF: 0 No Action naproxen 500 mg tablet 500 mg PO BID Qty: 14 RF: 0 Primary Care Provider: Felix Cardona Referrals: Heidy Ham MD [STAFF PHYSICIAN] - (2-3 days, call for appt) Felix Cardona MD [Primary Care Provider] - Disposition Disposition: Home, Self Care
[2021-03-28] MEDS: Ondansetron 4 MG/2 ML Vial IV (04:23)
[2021-03-28] MEDS: Morphine 4 MG/ML Syringe IV (04:23)
[2021-03-28] MEDS: HYDROmorphone 1 MG/ML Syringe IV (05:11)
[2021-03-28 06:36] LABS: Bedside Glucose 346 mg/dL (70-110)
[2021-03-28] MEDS: Lidocaine 1% (20 ml mdv) 20 ML Vial INFILT (06:38)
== END 2021-03-28 06:57 | disposition home or self-care (01) ==
PROVIDERS: Emergency Provider Emergency Medicine; PCP Family Medicine
DX: L02.11 Cutaneous abscess of neck (principal); L03.221 Cellulitis of neck; E11.65 Type 2 diabetes mellitus with hyperglycemia; E78.5 Hyperlipidemia, unspecified; Z79.2 Long term (current) use of antibiotics; Z79.84 Long term (current) use of oral hypoglycemic drugs; Z79.899 Other long term (current) drug therapy
CPT/HCPCS: 10060; 82962; 96365; 96366; 96375; 99283; J7040; A4216; J2405

== ENCOUNTER 2021-03-30 12:14 | Day surgery (SDC) | payer BC, SELFPAY ==
--- NOTE | 2021-03-29 11:09 | PCM.HP.BLA ---
History and Physical Date of Admission: 03/30/21 HISTORY AND PHYSICAL ? Shubham 1960 ? CHIEF COMPLAINT: (Abscess, Posterior Neck) ? HPI: The patient is a 61 year old male presents with posterior neck abscess. He states that he has noted tenderness and swelling for about two weeks. This has been worsening in the past week such that it prompted visit to ED on 03/28/2021. In the ED, patient was noted to have large erythematous swelling of posterior neck. His serum glucose was in the 300s and patient admits to poor control of his diabetes. He underwent stab incision in the ED and was placed on antibiotics and told to make an appointment in this clinic. Patient states that he has minimal tenderness in the area, he still notes copious amount of purulent drainage per the wound created above. He denies fevers. Soft tissue neck CT scan done in the ED, with no discernable purulent fluid pocket noted ? PAST MEDICAL HISTORY ? Diabetes mellitus (HCC) ? ? Essential hypertension ? ? High cholesterol ? ? Kidney stones ? ? Unspecified sleep apnea ? PAST SURGICAL HISTORY ? EXTENSIVE LEG SURGERY Bilateral 1971 ? KIDNEY STONE ANALYSIS ? ? ? TONSILLECTOMY HX ? 1966 ? TRANSURETHRAL ELEC-SURG PROSTATECTOM ? ? ? Current Outpatient Medications ? HYDROcodone-acetaminophen (NORCO) 5-325 mg per tablet Take 1 tablet by mouth every 6 hours as needed. ? metFORMIN (GLUCOPHAGE) 1,000 mg tablet 1 tablet twice daily. ? glimepiride (AMARYL) 4 mg tablet 1 tablet twice daily. ? lisinopril (ZESTRIL, PRINIVIL) 10 mg tablet 1 tablet once daily. ? simvastatin (ZOCOR) 40 mg tablet 1 tablet once daily. ? CIALIS 5 mg tablet 1 tablet once daily. ? alfuzosin SR (UROXATRAL) 10 mg 24 hr tablet Take 10 mg by mouth once daily. (Patient not taking: Reported on 03/29/2021 ? ALLERGIES: Bactrim [Sulfamethoxazole-Trimethoprim], Clindamycin, and Keflex [Cephalexin] ? PERSONAL HISTORY: ? Smoking status: Never Smoker ? Smokeless tobacco: Never Used Substance Use Topics ? Alcohol use: No ? Drug use: No FAMILY HISTORY Heart Mother [place] Heart Father CHF Cancer Maternal Grandmother? Lymphoma Cancer Maternal Grandmother ?? Bone ? The review of systems data was entered by the nurse and reviewed by me Nursing Notes: Sasha Moncada AMY 03/29/2021 10:00 AM Signed REVIEW OF SYSTEMS: General: The patient NOTES fatigue, denies weight loss, denies weight gain, NOTES feeling hot, and denies feelings of cold. Eyes: The patient denies glaucoma, denies eye injury/surgery, does not wear glasses or contacts. Ear/Nose/Throat: The patient denies allergies, denies hayfever, denies ear infections, and denies bloody noses. Cardiovascular: The patient denies chest pain, denies heart disease, NOTES high blood pressure,denies cardiac stent, denies prior heart attack, denies irregular heart beat, NOTES high cholesterol, denies poor circulation, denies heart failure, other cardiac issues, denies claudication, denies cold feet, denies peripheral arterial stent. Respiratory: The patient denies tuberculosis, denies pneumonia, denies frequent cough, denies pulmonary embolism, denies shortness of breath, and denies coughing up blood. Gastrointestinal: The patient denies difficulty swallowing, denies acid reflux, denies ulcers, denies vomiting, denies jaundice/hepatitis, denies gallbladder problems, denies black or tarry stools, denies hemorrhoids, denies bleeding from rectum, denies diverticulitis, denies constipation, denies diarrhea, denies loss of stool control, and denies hernias. Kidney/Bladder: The patient NOTES kidney stones, denies urine infections, and denies bloody urine. Skin: The patient denies a history of skin cancer, denies bleeding/changing moles, and denies a history of skin rash. Neurologic: The patient denies a history of epilepsy/convulsions, denies headaches, denies head/spinal injuries, and denies stroke/TIA. Psychiatric: The patient denies psychiatric medications, denies depression, and denies voices, denies substance abuse. Endocrine: The patient denies thyroid disorders, NOTES poorly controlled diabetes, and denies hormonal problems. Hematologic: The patient denies a history of bruising, denies bleeding, and denies anemia, denies blood clots. Infections: The patient NOTES a history of measles and mumps, denies rheumatic fever, and denies sexually transmitted diseases. Musculoskeletal: The patient denies back pain/injury, denies back problems, denies sciatica, denies knee/foot trouble, denies arthritis, or denies gout. When was patient's last Mammogram screening? N/A Last Colonoscopy: None Sasha Moncada LPN ? PHYSICAL EXAMINATION: General: The patient is 61 year old male, well nourished, well hydrated in no acute distress. The patient is oriented to time, place, and person. VITALS: Blood pressure 132/64, pulse 94, temperature 36.2 ?C (97.2 ?F), height 177.8 cm (5' 10), weight 122.5 kg (270 lb), SpO2 96 %. Body mass index is 38.74 kg/m?. Head ? Normocephalic. Eyes - EOM intact with sclera clear and no icterus noted. Wearing glasses. Neck - posterior swelling/erythema/drainage per small stab incision site (1 cm) - area of erythema 8 x 7 cm, supple with no jugular venous distention noted. Trachea is midline. Lungs ? clear to auscultation. Normal breath sounds. No rales/rhonchi/wheezing noted. No labored breathing noted, such as retractions. No cough heard. Heart ? normal S1 and S2 auscultated. No rubs/clicks/murmurs noted. Regular rate. Abdomen ? soft and benign. Normal bowel sounds. No abdominal bruits noted. Difficult to determine if any masses or organomegaly due to body habitus. Extremities ? no calf tenderness noted. No pitting edema noted. Skin ? normal skin integrity. Neurological ? gait normal, no focal deficits noted. Psych ? calm and appropriate ? IMPRESSION: posterior neck abscess/cellulitis, poorly controlled diabetes ? PLAN: I have discussed the above with the patient. I have reviewed the neck CT scan and the notes from [facility] ED visit of the patient. I have offered incision and drainage of posterior neck abscess - to be done in the OR. I have explained the procedure to the patient. Because of the extent of the cellulitis, will do a wide incision to completely unroof the area. I have counseled the patient as to the risks of the procedure, including but not limited to: infection, bleeding, injury to any blood vessels/nerves, scar tissue, wound infections, complications of anesthesia, cosmetic deformity, etc. ? the patient understands. The patient was offered a surgery/procedure. The provider and patient have discussed in detail the risk of exposure to and/or potential harm posed by the COVID-19 virus with having a surgery/procedure at this time versus the risk of delaying the surgery/procedure. It is not possible to know either the risk of delaying the surgery or procedure or chance of getting an infection with perfect accuracy, but a joint decision was made between the patient and the provider to proceed at this time with the scheduled surgery/procedure. The patient wishes to proceed. I have answered all questions to the patient?s satisfaction and the patient has no further questions. . Diagnoses: (L02.11) Cutaneous abscess of neck (primary encounter diagnosis) (E11.65) Uncontrolled type 2 diabetes mellitus with hyperglycemia (HCC) ? ? Heidy Ham MD
[2021-03-29] MEDS: Lactated Ringers 1,000 ML 75 ML IV (11:15)
[2021-03-30] VITALS (7 sets, daily range): BP systolic 126–152; BP diastolic 82–92; PULSE 73–78; RESP 16; TEMP 36.6–37; O2SAT 95–98; BMI 38.5
[2021-03-30 13:25] LABS: Bedside Glucose 267 mg/dL (70-110)
--- NOTE | 2021-03-30 16:09 | PCM.OPRPT ---
Report of Operation Date of Procedure: 03/30/21 Pre-Operative Diagnosis: posterior neck abscess Post-Operative Diagnosis: same Surgery/Procedure Performed:: incision and drainage of posterior neck abscess Surgeon: Heidy Ham Type of Anesthesia: MAC/Supplemental/Local Anesthesiologist: Lakhwinder Tillamn Specimen's removed: cultures of abscessed cavity Estimated Blood Loss (mL): 20 ml Fluids Replaced: 400 ml RL Description of Procedure: After informed consent was given, the patient was brought to the Operating Room. Appropriate timeout protocol was followed. IV anesthesia was given by the anesthesia provider. He was then placed in the right lateral decubitus position. The patient's posterior left neck area was then prepped with a sterile surgical skin preparation. Appropriate sterile drapes were placed. Prior to draping the patient the skin was marked out to delineate the extent of erythema so as to ensure adequate drainage. The area of abscess was the posterior neck, slightly to the left side. The skin and subcutaneous tissues in and around the lesion were then infiltrated with 1% xylocaine with epinephrine. A skin incision was then made with a 15 blade scalpel overlying the most obvious protrusion of the area of infection. A cruciate incision was made. The incision was carried down through to the subcutaneous tissues. There was purulent drainage that was evacuated. The purulent drainage extended down to the musculature of the occiput. Any hemorrhage was controlled with electrocautery. Wound cultures were taken with culture sticks. The abscessed cavity was widely opened to allow for proper drainage. The cavity was 5 cm x 5 cm with a depth of 4 cm. The cavity was irrigated with hydrogen peroxide. Any bleeding was controlled by electrocoagulation. The wound was then densely packed with [id number]-[id number]-[id number]-saline soaked gauze. Sterile dressing was applied over this. The patient tolerated the procedure well and was brought to the Recovery Room in stable condition. Complications none noted Admit VTE Documentation VTE Present on Admission: Yes VTE Mechan Device Prophylaxis: SCD's
--- NOTE | 2021-03-30 16:47 | DCINST_ITS ---
Discharge Instructions Follow Up Care Test Results: Test results from this visit will be discussed in further detail at your follow-up appointment, if applicable. Discharge Plan Admission Attending Provider: Heidy Ham Primary Care Provider: Felix Cardona Instructions Additional Instructions / Restrictions: Recommended pain control regimen - May take 600 mg ibuprofen (Motrin) and then in 3-4 hours, may take 650 mg acetaminophen (Tylenol), then in 3-4 hours may take 600 mg ibuprofen, then in 3- 4 hours may take 650 mg acetaminophen and so on for 2-3 days May take narcotic pain medication for pain that is not controlled by above and at night for comfort through the night. May need to take on regular basis for the first 24 hours. Leave dressings in place Sponge bathe only, May take shower, but must cover the dressing site with towel or other such covering to prevent it from getting wet Do not soak - no tub baths/swimming Ice applied to areas of discomfort may help Regular diet as tolerated, drink plenty of fluids. Please call my office for an appointment to see me on April 02 in the afternoon. Office number is Discharge Orders/Prescriptions Prescriptions: New oxycodone 5 mg capsule 5 mg PO Q8H PRN (Reason: pain) 7 Days Qty: 20 RF: 0 No Action simvastatin 40 MG tablet 40 mg PO QHS RF: 0 glimepiride 2 MG tablet 4 mg PO BID RF: 0 metformin 1,000 MG tablet 1,000 mg PO BIDCM RF: 0 lisinopril 10 MG tablet 10 mg PO DAILY RF: 0 tadalafil [Cialis] 5 MG tablet 5 mg PO DAILY RF: 0 naproxen 500 mg tablet 500 mg PO BID Qty: 14 RF: 0 doxycycline hyclate 100 mg capsule 100 mg PO BID Qty: 20 RF: 0 clindamycin HCl 150 mg capsule 300 mg PO 4X/DAY Qty: 80 RF: 0 hydrocodone-acetaminophen [hydrocodone-acetaminophen] 1 TABLET tablet 1 tab PO Q6H PRN PRN (Reason: Pain) 3 Days Qty: 12 RF: 0 Referrals / Follow Up: Felix Cardona MD [Primary Care Provider] - Disposition Disposition (needs filled in before D/C Order can be placed): Home, Self Care
[2021-03-30] MEDS: oxyCODONE 5 MG Tablet PO (17:00)
== END 2021-03-30 17:28 | disposition home or self-care (01) ==
LOC: SDC 12:15 → AC 12:17
PROVIDERS: PCP Family Medicine; Visit Provider Surgery
PROC: (CPT 10060; principal; 2021-03-30 15:35)
DX: L02.11 Cutaneous abscess of neck (principal); E11.65 Type 2 diabetes mellitus with hyperglycemia; I10 Essential (primary) hypertension; E78.00 Pure hypercholesterolemia, unspecified; G47.30 Sleep apnea, unspecified; Z79.84 Long term (current) use of oral hypoglycemic drugs; Z79.899 Other long term (current) drug therapy
CPT/HCPCS: 10060; 82962; 87070; 87075; 87077; 87102; 87186; 87205; 87206; J7050; J7120

== ENCOUNTER 2021-12-27 13:57 | Outpatient (CLI) | payer BC, SELFPAY ==
[2021-12-27 15:04] LABS: PSA,Total - Annual Screen 1.81 ng/mL (0.00-4.00)
== END 2021-12-27 23:59 | disposition home or self-care (01) ==
LOC: LAB 13:58
PROVIDERS: PCP Family Medicine; Visit Provider Urology
DX: Z12.5 Encounter for screening for malignant neoplasm of prostate (principal)
CPT/HCPCS: 36415; 84153; G0103

== ENCOUNTER → 2023-06-02 | Outpatient (CLI) | payer BC, SELFPAY ==
[2023-06-02 12:15] LABS: Absolute Lymphocyte Count 1.75 X10^3/uL (0.83-4.51); Basophil# 0.06 X10^3/uL; Basophil% 1.1 % (0-1); Eosinophil# 0.26 X10^3/uL; Eosinophils% 4.7 % (0-5); Hematocrit 41.7 % (40-54); Hemoglobin 14.3 g/dL (13.0-16.5); Lymphocyte # 1.75 X10^3/ul (0.83-4.51); Lymphocyte % 31.3 % (19-41); Mean Corp Hgb Conc 34.3 g/dL (32-36); Mean Corpuscular Hgb 30.5 pg (27.0-32.0); Mean Corpuscular Volume 88.9 fL (80-94); Mean Platelet Vol. 9.8 fl (6.2-12.0); Monocyte# 0.45 X10^3/uL; Monocyte% 8.1 % (0-10); NRBC Flagged by Analyzer 0 % (0-5); Neutrophil # 3.04 X10^3/uL (2.7-7.7); Neutrophil % 54.3 % (47-70); Platelet Count 201 K/mm3 (150-450); RBC Distribution Width CV 12.7 % (11.6-14.6); RBC Distribution Width SD 41.3 fl (35.1-43.9); Red Blood Count 4.69 M/mm3 (4.6-6.2); White Blood Count 5.6 K/mm3 (4.4-11.0)
[2023-06-02 12:35] LABS: ALB/GLOB Ratio 0.9 RATIO (0.9-2.4); AST(SGOT) 23 U/L (15-37); Alanine Aminotransfer ALT/SGPT 41 U/L (16-61); Albumin, Serum 3.7 g/dL (3.2-5.0); Alkaline Phosphatase 51 U/L (45-117); Anion Gap 8 (5-15); BUN 20 mg/dL (7-18); BUN/Creat Ratio 19.8 RATIO (10-20); Calcium,Total 9.6 mg/dL (8.5-10.1); Chloride 100 mmol/L (98-107); Cholesterol 140 mg/dL (200); Creatinine, Serum 1.01 mg/dL (0.70-1.30); EST Glomerular Filtration Rate 79 mL/min (>60); Est Glom Filt Rate - Afr Amer 96 mL/min (>60); Globulin 4.1 g/dL (2.2-4.2); Glucose 269 mg/dL (74-106); High Density Lipoprotein 37 mg/dL; Potassium 4.3 mmol/L (3.5-5.1); Protein, Total 7.8 g/dL (6.4-8.2); Sodium Level 134 mmol/L (136-145); Triglycerides 448 mg/dL
[2023-06-02 12:37] LABS: Hemoglobin A1c 10.5 % (3.8-5.6)
== END | disposition home or self-care (01) ==
LOC: BFHLAB 10:51
PROVIDERS: PCP Nurse Practitioner Family; Referring Provider Nurse Practitioner Family; Visit Provider Nurse Practitioner Family
DX: E11.9 Type 2 diabetes mellitus without complications (principal); E78.5 Hyperlipidemia, unspecified; I10 Essential (primary) hypertension; R25.2 Cramp and spasm
CPT/HCPCS: 36415; 80053; 80061; 83036; 83735; 85025

== ENCOUNTER → 2023-07-06 | Outpatient (CLI) | payer BC, SELFPAY ==
--- NOTE | 2023-07-06 08:46 | VDLE_ITS ---
Reason For Study: cramping, rule out obstruction RIGHT LEFT GSV is normal. GSV is normal. CFV is compressible, spontaneous, phasic, CFV is compressible, spontaneous, phasic, competent and demonstrates normal competent, and demonstrates normal augmentation. augmentation. FV is compressible, spontaneous, phasic, FV is compressible, spontaneous, phasic, competent and demonstrates normal competent and demonstrates normal augmentation. augmentation. POP V is compressible, spontaneous, phasic, POP V is compressible, spontaneous, phasic, competent and demonstrates normal competent and demonstrates normal augmentation. augmentation. T/P Trunk is compressible. T/P Trunk is compressible. PTV is compressible. PTV is compressible. RT PerV is compressible. LT PerV is compressible. Procedure This is a venous duplex using B-mode, color flow and spectral Doppler. Exam performed in department. The exam was diagnostic. A preliminary report was called and/or faxed to Cat ARGUETA. VL/Venous Duplex US - Tristan Extrem Interpretation Summary No evidence for acute deep venous thrombosis bilateral lower extremities with p atent and compressible bilateral great saphenous veins. Ordering Physician: Cat Queen Performed By: Darryl Hoover RVMohsen
== END | disposition home or self-care (01) ==
LOC: CVS 08:44
PROVIDERS: PCP Nurse Practitioner Family; Referring Provider Nurse Practitioner Family; Visit Provider Nurse Practitioner Family
DX: R25.2 Cramp and spasm (principal)
CPT/HCPCS: 93970

== ENCOUNTER → 2023-09-05 | Outpatient (CLI) | payer BC, SELFPAY ==
--- NOTE | 2023-09-05 07:21 | RAD_ITS ---
STUDY: X-RAY CHEST REASON FOR EXAM: Male, 63 years old. CHEST PAIN TECHNIQUE: PA and lateral views of the chest. COMPARISON: None. FINDINGS: The lungs are clear and expanded. Slightly elevated right hemidiaphragm. Normal size heart. Normal mediastinum and kezia. Normal visualized pulmonary arteries. Normal visualized aortic arch and descending thoracic aorta. Normal visualized thoracic spine. Normal visualized ribs, clavicles, and shoulders. There is no demonstrated abnormality of the visualized soft tissue structures of the upper abdomen. RAD/Chest PA and Lateral IMPRESSION: No active disease. Electronically Signed: Noe Haque MD at 21:50 EST ,
== END | disposition home or self-care (01) ==
LOC: RAD 07:21
PROVIDERS: PCP Nurse Practitioner Family; Referring Provider Nurse Practitioner Family; Visit Provider Nurse Practitioner Family
DX: R07.9 Chest pain, unspecified (principal)
CPT/HCPCS: 71046

== ENCOUNTER → 2024-06-12 | Outpatient (CLI) | payer BC, SELFPAY ==
[2024-06-12 12:28] LABS: Absolute Lymphocyte Count 0.91 X10^3/uL (0.83-4.51); Absolute Neutrophil Count 2.6 X10^3/uL (2.0-7.7); Basophil# 0.05 X10^3/uL; Basophil% 1.1 % (0-1); Eosinophil# 0.22 X10^3/uL; Hemoglobin 12.6 g/dL (13.0-16.5); Lymphocyte # 0.91 X10^3/ul (0.83-4.51); Lymphocyte % 20.7 % (19-41); Mean Corp Hgb Conc 33.2 g/dL (32-36); Mean Corpuscular Hgb 28.8 pg (27.0-32.0); Mean Platelet Vol. 9.6 fl (6.2-12.0); Monocyte# 0.56 X10^3/uL; Monocyte% 12.7 % (0-10); NRBC Flagged by Analyzer 0 % (0-5); Neutrophil # 2.64 X10^3/uL (2.7-7.7); Platelet Count 198 K/mm3 (150-450); RBC Distribution Width CV 13.8 % (11.6-14.6); RBC Distribution Width SD 43.9 fl (35.1-43.9); Red Blood Count 4.37 M/mm3 (4.6-6.2); White Blood Count 4.4 K/mm3 (4.4-11.0)
[2024-06-12 13:44] LABS: AST(SGOT) 20 U/L (15-37); Alanine Aminotransfer ALT/SGPT 38 U/L (16-61); Albumin, Serum 3.8 g/dL (3.2-5.0); Alkaline Phosphatase 76 U/L (45-117); Anion Gap 6 (5-15); BUN 22 mg/dL (7-18); BUN/Creat Ratio 16.2 RATIO (10-20); Calcium,Total 10.1 mg/dL (8.5-10.1); Chloride 102 mmol/L (98-107); Cholesterol 137 mg/dL (200); Creatinine, Serum 1.36 mg/dL (0.70-1.30); EST Glomerular Filtration Rate 56 mL/min (>60); Est Glom Filt Rate - Afr Amer 68 mL/min (>60); Glucose 132 mg/dL (74-106); High Density Lipoprotein 46 mg/dL; PSA,Total - Annual Screen 1.25 ng/mL (0.00-4.00); Potassium 4.2 mmol/L (3.5-5.1); Protein, Total 7.8 g/dL (6.4-8.2); Sodium Level 136 mmol/L (136-145); Triglycerides 144 mg/dL; Very Low Density Lipoprotein 29 mg/dL (5-40)
== END | disposition home or self-care (01) ==
LOC: BFHLAB 10:05
PROVIDERS: PCP Nurse Practitioner Family; Referring Provider Nurse Practitioner Family; Visit Provider Nurse Practitioner Family
DX: Z00.01 Encounter for general adult medical examination with abnormal findings (principal); Z12.5 Encounter for screening for malignant neoplasm of prostate
CPT/HCPCS: 36415; 80053; 80061; 84153; 85025; G0103

== ENCOUNTER → 2025-06-16 | Outpatient (CLI) | payer BC, SELFPAY ==
[2025-06-16 12:05] LABS: Hematocrit 36.0 % (40-54); Hemoglobin 12.3 g/dL (13.0-16.5); Immature Granulocytes Count 0.060 X10^3/uL (0.0-0.0); Mean Corp Hgb Conc 34.2 g/dL (32-36); Mean Corpuscular Volume 90.7 fL (80-94); Mean Platelet Vol. 9.9 fl (6.2-12.0); NRBC Flagged by Analyzer 0 % (0-5); Platelet Count 159 K/mm3 (150-450); RBC Distribution Width CV 12.6 % (11.6-14.6); RBC Distribution Width SD 41.2 fl (35.1-43.9); Red Blood Count 3.97 M/mm3 (4.6-6.2); White Blood Count 5.3 K/mm3 (4.4-11.0)
[2025-06-16 13:26] LABS: AST(SGOT) 20 U/L (<=37); Alanine Aminotransfer ALT/SGPT 25 U/L (<=46); Albumin, Serum 4.3 g/dL (3.4-4.8); Alkaline Phosphatase 66 U/L (40-129); Anion Gap 14 (5-15); BUN 42 mg/dL (4-19); BUN/Creat Ratio 21.9 RATIO (10-20); Calcium,Total 10.4 mg/dL (7.6-11.0); Carbon Dioxide 19.9 mmol/L (21.0-32.0); Chloride 103 mmol/L (98-108); Cholesterol 143 mg/dL (<=200); Globulin 3.2 g/dL (2.2-4.2); Glucose 283 mg/dL (70-99); Low Density Lipoprotein Calc. 76 mg/dL; PSA,Total - Annual Screen 1.73 ng/mL (0.02-4.00); Potassium 4.7 mmol/L (3.3-5.1); Triglycerides 121 mg/dL; Very Low Density Lipoprotein 24 mg/dL (5-40); cholesterol:hdl ratio screen 3.35
== END | disposition home or self-care (01) ==
LOC: BFHLAB 08:35
PROVIDERS: PCP Nurse Practitioner Family; Visit Provider Nurse Practitioner Family
DX: Z12.5 Encounter for screening for malignant neoplasm of prostate (principal); I10 Essential (primary) hypertension; E78.5 Hyperlipidemia, unspecified
CPT/HCPCS: 36415; 80053; 80061; 84153; 85025; G0103

== ENCOUNTER → 2025-07-15 | Outpatient (CLI) | payer BC, SELFPAY ==
[2025-07-15 14:56] LABS: Anion Gap 10 (5-15); BUN 29 mg/dL (4-19); BUN/Creat Ratio 18.2 RATIO (10-20); Calcium,Total 9.9 mg/dL (7.6-11.0); Carbon Dioxide 25.1 mmol/L (21.0-32.0); Chloride 101 mmol/L (98-108); Glucose 248 mg/dL (70-99); Potassium 4.6 mmol/L (3.3-5.1)
== END | disposition home or self-care (01) ==
LOC: LAB 13:12
PROVIDERS: PCP Nurse Practitioner Family; Referring Provider Nurse Practitioner Family; Visit Provider Nurse Practitioner Family
DX: N18.30 Chronic kidney disease, stage 3 unspecified (principal)
CPT/HCPCS: 36415; 80048

== ENCOUNTER → 2025-07-15 | Outpatient (CLI) | payer BC, SELFPAY ==
--- NOTE | 2025-07-15 10:41 | ECHOCS_ITS ---
Reason For Study Reason For Study: Murmur Procedure This was a 2D Doppler, Color Flow transthoracic echocardiogram. Contrast injection was performed. Exam performed in department. Left Ventricle Normal LV size. Mild concentric left ventricular hypertrophy. The left ventricular ejection fraction is 45 %. Stage 1 diastolic dysfunction. There is mild global hypokinesis of the left ventricle. Right Ventricle Normal RV size. Normal systolic function. Atria Normal left atrium. Normal right atrium. Mitral Valve Normal mitral valve. Tricuspid Valve Normal tricuspid valve. Mild (1+) tricuspid valve insufficiency. Pulmonary artery systolic pressure is 33 mmHg. Aortic Valve Trisinus/trileaflet aortic valve. Peak aortic valve gradient 37 mmHg. Mean aortic valve gradient 24 mmHg. Pulmonic Valve Normal pulmonic valve. Great Vessels Normal aortic root. The pulmonary artery is normal size. Inferior vena cava collapse with respiration. Pericardium/Pleural No pericardial effusion. Medication Diluted definity 3ml given slow IV push to enhance endocardial definition. MMode/2D Measurements & Calculations LVIDd: 4.3 cm IVSd: 1.4 cm LVOT diam: 2.1 cm LVIDs: 3.2 cm LVPWd: 1.3 cm RVDd: 3.1 cm FS: 25.8 % LVOT area: 3.5 cm2 Ao root diam: 2.7 cm LAV(MOD-bp): 54.7 ml RVOT diam: 2.2 cm LAV(MOD-bp) Indexed: 24.4 ml/m2 LAV(MOD-sp2): 55.6 ml LAV(MOD-sp4): 51.2 ml SV(MOD-sp4): 63.2 ml SV(sp4-el): 66.6 ml LVAd ap4: 38.6 cm2 LVLd ap4: 8.6 cm SI(MOD-sp4): 28.3 ml/m2 EDV(MOD-sp4): 141.1 ml EDV(sp4-el): 147.9 ml LVAs ap4: 27.0 cm2 LVLs ap4: 7.6 cm ESV(MOD-sp4): 77.9 ml ESV(sp4-el): 81.3 ml EF(MOD-sp4): 44.8 % EF(sp4-el): 45.0 % LA A4 area: 18.8 cm2 LA dimension(2D): 4.3 cm RA A4 area: 11.4 cm2 TAPSE: 1.9 cm Time Measurements MV dec time: 0.39 sec Doppler Measurements & Calculations MV E max pedro: 70.0 cm/sec Lat Peak E' Pedro: 9.9 cm/sec Med Peak E' Pedro: 5.9 cm/sec MV A max pedro: 127.4 cm/sec E/E' lat: 7.1 E/E' med: 12.0 MV E/A: 0.55 MV dec slope: 178.5 cm/sec2 Ao V2 max: 302.1 cm/sec LV V1 max: 101.4 cm/sec Ao max P.6 mmHg LV V1 max P.1 mmHg Ao V2 mean: 232.4 cm/sec LV V1 mean P.9 mmHg Ao mean P.8 mmHg LV V1 mean: 84.2 cm/sec Ao V2 VTI: 63.5 cm LV V1 VTI: 23.4 cm AV (velocity ratio): 0.37 JANICE(I,D): 1.3 cm2 JANICE(V,D): 1.2 cm2 SV(LVOT): 81.9 ml PA V2 max: 170.5 cm/sec SV(RVOT): 63.5 ml PA V2 mean: 139.5 cm/sec PA mean PG (full): 6.2 mmHg TR max pedro: 264.7 cm/sec Qp/Qs: 1.0/1.3 TR max P.5 mmHg ECHO/Echo Complete W/ Contrast Interpretation Summary Normal LV size. The left ventricular ejection fraction is 45 %. Stage 1 diastolic dysfunction. Mild concentric left ventricular hypertrophy. There is mild global hypokinesis of the left ventricle. Trisinus/trileaflet aortic valve. Mean aortic valve gradient 24 mmHg. Contrast injection was performed. Ordering Physician: Cat Queen Referring Physician: Cat Queen Performed By: Cat Wild, WAYNE, RVT
== END | disposition home or self-care (01) ==
LOC: CVS 10:39
PROVIDERS: PCP Nurse Practitioner Family; Referring Provider Nurse Practitioner Family; Visit Provider Nurse Practitioner Family
DX: R01.1 Cardiac murmur, unspecified (principal)
CPT/HCPCS: 93306; Q9957; A4216; C8929

== ENCOUNTER → 2025-09-16 | Outpatient (CLI) | payer BC, SELFPAY ==
[2025-09-16 12:31] LABS: Anion Gap 14 (5-15); BUN 26 mg/dL (4-19); BUN/Creat Ratio 14.2 RATIO (10-20); Calcium,Total 9.6 mg/dL (7.6-11.0); Carbon Dioxide 21.6 mmol/L (21.0-32.0); Chloride 103 mmol/L (98-108); Glucose 200 mg/dL (70-99); Potassium 4.6 mmol/L (3.3-5.1)
== END | disposition home or self-care (01) ==
LOC: BFHLAB 08:36
PROVIDERS: PCP Nurse Practitioner Family; Visit Provider Nurse Practitioner Family
DX: N18.31 Chronic kidney disease, stage 3a (principal)
CPT/HCPCS: 36415; 80048